=== PATIENT | female | born 1970 | race American Indian/Alaskan Native ===

== ENCOUNTER 2022-03-10 04:54 | Emergency (ER) | payer SELFPAY ==
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
[2022-03-10 08:26] LABS: Blood Urea Nitrogen 8 mg/dL (7-17); Hemolysis Index 19
[2022-03-10 08:29] LABS: BUN/Creatinine Ratio 11; Basophils % (Auto) 0.2 % (0.0-1.8); Eosinophils % (Auto) 0.1 % (0.0-4.3); Hematocrit 39.9 % (30.3-42.9); Hemoglobin 13.4 gm/dl (10.1-14.3); Lymphocytes # (Auto) 0.9 K/mm3 (1.2-5.4); Lymphocytes % (Auto) 8.9 % (13.4-35.0); Mean Corpuscular HGB Conc 33 % (30-34); Mean Corpuscular Volume 94 fl (79-97); Monocytes # (Auto) 0.4 K/mm3 (0.0-0.8); Monocytes % (Auto) 3.6 % (0.0-7.3); Platelet Count 273 K/mm3 (140-440); Red Blood Count 4.25 M/mm3 (3.65-5.03); Red Cell Distribution Width 12.8 % (13.2-15.2)
--- NOTE | 2022-03-10 08:38 | Cat Scan Report ---
CT head/brain wo con, CT cervical spine wo con INDICATION / CLINICAL INFORMATION: Head injury after fall. TECHNIQUE: Axial coronal and sagittal images All CT scans at this location are performed using CT dose reduction for ALARA by means of automated exposure control. COMPARISON: None available. FINDINGS: Head: No acute intracranial hemorrhage. Ventricles are normal in size without midline shift or mass effect. No extra-axial fluid collection is seen. Visualized orbits appear normal. Intraocular muscles and or bital globes appear intact. No acute bone findings are seen. Cervical spine: The cervical spine alignment appears normal. Motion artifact is seen at C1-C2 causes significant roxi fact. Facets are well aligned throughout. No prevertebral soft tissue swelling is seen. No displaced fractures identified. IMPRESSION: No acute findings in the CT head or CT cervical spine. Motion artifact limits visualization at the cr aniocervical junction. Signer Name: Noam Early MD Signed: 03/10/2022 8:33 AM Workstation Name: [id number]
[2022-03-10] MEDS ORDERED: LIDOCAINE (1%) 10 MG/1 ML VIAL 20 ML MDV INFILTRATI ONE (08:47)
[2022-03-10] MEDS ORDERED: SODIUM CHLORIDE 0.9% IRR 500 ML BOTTLE IR ONE (08:47)
[2022-03-10] MEDS ORDERED: TETANUS,DIPH,PERTUSS(ACELL) VACCINE 0.5 ML SYRINGE IM ONE (09:00)
[2022-03-10] MEDS ORDERED: HYDROGEN PEROXIDE 118 ML SOLUTION TP ONE (09:34)
[2022-03-10] MEDS ORDERED: BACITRACIN ZINC OINT 28.4 GM TP ONE (09:48)
[2022-03-10 10:14] VITALS: BP 134/81
== END 2022-03-10 10:15 | disposition home or self-care (01) ==
LOC: ED 04:54
DX: S01.01XA Laceration without foreign body of scalp, initial encounter (principal); F10.129 Alcohol abuse with intoxication, unspecified; F17.200 Nicotine dependence, unspecified, uncomplicated; W19.XXXA Unspecified fall, initial encounter; Y93.89 Activity, other specified; Y92.89 Other specified places as the place of occurrence of the external cause; Y99.8 Other external cause status
CPT/HCPCS: 36415; 70450; 72125; 80048; 80320; 85025; 90471; 90715; 99284; G0480